=== PATIENT | female | born 1970 | race Caucasian/White ===

== ENCOUNTER 2023-04-08 12:21 | Day surgery (SDC) | payer BC, SELFPAY ==
--- NOTE | 2023-04-02 06:45 | EKG12_ITS ---
Test Reason : PREOP Blood Pressure : / mmHG Vent. Rate : 060 BPM Atrial Rate : 060 BPM P-R Int : 194 ms QRS Dur : 096 ms QT Int : 436 ms P-R-T Axes : 050 -10 030 degrees QTc Int : 436 ms Normal sinus rhythm Normal ECG Confirmed by KEN AGUILA, ALYCE ([id number]), newspaper managing editor EDISON IBARRA ([id number]) on 04/05/2023 2:14:56 PM Referred By: David Tyson Confirmed By:ALYCE ROGERS MD
[2023-04-02 07:53] LABS: Hematocrit 36.2 % (37-47); Hemoglobin 11.7 g/dL (12.0-15.0); Mean Corp Hgb Conc 32.3 g/dL (32-36); Mean Corpuscular Hgb 29.3 pg (27.0-32.0); Mean Corpuscular Volume 90.5 fL (81-99); Mean Platelet Vol. 10.4 fl (6.2-12.0); Platelet Count 274 K/mm3 (150-450); RBC Distribution Width CV 11.9 % (11.6-14.6); RBC Distribution Width SD 39.5 fl (35.1-43.9); White Blood Count 7.4 K/mm3 (4.4-11.0)
[2023-04-02 08:23] LABS: Anion Gap 1 (5-15); BUN 14 mg/dL (7-18); BUN/Creat Ratio 20.6 RATIO (10-20); Calcium,Total 9.2 mg/dL (8.5-10.1); Chloride 110 mmol/L (98-107); Creatinine, Serum 0.68 mg/dL (0.55-1.02); EST Glomerular Filtration Rate 97 mL/min (>60); Est Glom Filt Rate - Afr Amer 117 mL/min (>60); Glucose 101 mg/dL (74-106); Potassium 4.3 mmol/L (3.5-5.1); Sodium Level 142 mmol/L (136-145)
--- NOTE | 2023-04-06 17:10 | PCM.HP.STD ---
[facility] - General General Date of Admission: 04/08/23 Date of Service: 04/08/23 Chief Complaint: Chronic venous sufficiency, varicose veins with inflammation, leg pain?right lower extremity HPI Narrative JOSE LUIS HERRERA, is a 52 F who presents with a longstanding history of chronic venous disease in her lower extremities. She has recently presented with pain, aching, and discomfort in her right lower extremity. This has been occurring for many years. She denies swelling. She also denies a history of thrombophlebitis. She has a history of endovenous laser ablation of the left great saphenous vein and the left small saphenous vein which was performed in September 2017. A venous duplex examination has been performed, which has revealed incompetence involving the right great saphenous vein, the right small saphenous vein, and the right anterior accessory saphenous vein. The implications of this diagnosis have been discussed with the patient in detail. The options of management have been thoroughly explained. Conservative treatment measures have been implemented, which have included leg elevation, avoidance of idle standing and sitting, graduated compression stockings, weight control measures, active lifestyle, [id number]-rwl-[id number] analgesics, etc. Despite these measures, the patient has remained symptomatic, with symptoms which have adversely affected daily activities, quality of life, and job functions. [facility] Medical History (Updated 04/06/23 @ 17:[address] David Tyson MD) Anemia Chronic venous insufficiency of lower extremity Leg cramps Low iron Non-smoker Pain in right leg PONV (postoperative nausea and vomiting) Varicose veins with inflammation Wears glasses Home Medications NK 04/01/23 [History Last Taken Unknown] Allergy/AdvReac Type Severity Reaction Status Date / Time No Known Allergies Allergy Verified 04/01/23 09:21 other (The patient's father is 78 years of age with a history of hypertension. The patient's mother is 73 years of age with a history of hypertension and kidney disease.) Surgical History History of carpal tunnel release of both wrists (~2016) History of dilation and curettage History of endometrial ablation (~2007) History of excision of pilonidal cyst History of hysterectomy (~2022) Social History Smoking Status: Never smoker Physical Exam Const alert, oriented x3, no apparent distress and well nourished Constitutional Narrative: The patient is obese. She weighs 187 pounds. She stands 5 feet 7 inches tall. General Appearance: cooperative and well developed HEENT normocephalic and head/scalp atraumatic Eyes PERRL and EOMs intact bilaterally Neck General: trachea midline Resp normal respiratory effort and normal air movement Cardio regular rhythm and no murmurs GI soft to palpation and non-tender Extremity normal capillary refill, no clubbing, cyanosis or edema and no calf tenderness Extremity Narrative: Lower extremities are warm and well-perfused. Pedal pulses are bilaterally palpable. Full range of motion is noted. Scattered small varicosities are noted in the patient's lower extremities bilaterally. General Extremity: no tenderness to palpation of joints or extremities Skin General Skin Exam: no breakdown and turgor normal Rashes: no rashes Neuro CN's II-XII intact bilaterally, no focal motor deficits and no sensory deficits noted Psych thought process normal Appearance: appropriate Results Lab / Micro Data 04/02/23 06:55 04/02/23 06:55 Assessment & Plan Assessment/Plan (1) Chronic venous insufficiency of lower extremity: (2) Varicose veins with inflammation: (3) Pain in right leg: PLAN: Plan This is a 52-year-old female with a longstanding history of chronic venous insufficiency, varicose veins with inflammation, and leg pain in her right lower extremity. A venous duplex examination has revealed valvular incompetence involving the right great saphenous vein, the right small saphenous vein, and the right anterior accessory saphenous vein. The implications of this diagnosis have been discussed with the patient in detail. The options of management have been thoroughly explained. Despite conservative treatment measures, the patient remains symptomatic, with symptoms which adversely affect daily activities, quality of life, and job functions. Medications and risks of endovenous laser ablation of the right great saphenous vein, the right small saphenous vein, and the accessory saphenous vein have been discussed with patient in detail. Plan: The patient is to be admitted for the purpose of elective endovenous laser ablation of the right great saphenous vein, the right small saphenous vein, and the right anterior accessory saphenous vein. The indications and risks of the procedure have been discussed with the patient in detail. Expectations have been explained. Patient's questions have been answered. The patient has indicated her desire to proceed. The appropriate preprocedure consent process has been undertaken.
[2023-04-08] MEDS: Lactated Ringers 1,000 ML 15 ML IV (12:55)
[2023-04-08] MEDS: Enoxaparin 30 MG/0.3 ML Syringe SC (12:55)
[2023-04-08 12:57] VITALS: BP 124/83; PULSE 80; RESP 18; TEMP 36.8; O2SAT 98; BMI 30.2
[2023-04-08] MEDS: Cefazolin 2 GM in 0.9% Normal Saline (100mL Bag) 100 ML IV (14:09)
[2023-04-08] MEDS: [UNRECOGNIZED DRUG - OTHER] OPERA.SITE (14:35)
[2023-04-08] MEDS: Lactated Ringers 1,000 ML 65 ML IV (15:35)
--- NOTE | 2023-04-08 15:49 | DCINST_ITS ---
Discharge Instructions Diet Discharge Diet: No restrictions Activity Discharge Activity: May Not Drive (May not drive for 48 hours) May shower in (days): 2 Lifting Restrictions: Avoid lifting more than 10 pounds for 10 days Additional Activity Instructions:: Elevate legs at heart level or higher as much s possible. Dressing / Incision Suture Line Care: Avoid Pulling/Pushing Change Dressing in: 2 days Remove Dressing in: 2 days (May shower in 48 hours, then rewrap with Ubaldo from base of toes to groin daily.) Cleanse incision/area with: Keep Dressing Clean & Dry Follow Up Care Please Follow Up With: David Tyson MD When: 10-14 days Test Results: Test results from this visit will be discussed in further detail at your follow- up appointment, if applicable. Discharge Plan Admission Attending Provider: David Tyson Primary Care Provider: Fredis Ricardo Discharge Orders/Prescriptions Prescriptions: No Action NK Referrals / Follow Up: Fredis Ricardo DO [Primary Care Provider] - Disposition Disposition (needs filled in before D/C Order can be placed): Home, Self Care
[2023-04-08 15:52] VITALS: BP 124/83; BP 132/72; PULSE 102; RESP 18; TEMP 36.5; O2SAT 98
[2023-04-08 16:00] VITALS: BP 124/83; BP 152/73; PULSE 99; RESP 16; O2SAT 99
[2023-04-08 16:09] VITALS: BP 124/83; BP 136/75; PULSE 91; RESP 16; O2SAT 98
[2023-04-08 16:15] VITALS: BP 124/83; BP 140/80; PULSE 86; RESP 16; TEMP 36.6; O2SAT 100
[2023-04-08 16:35] VITALS: BP 124/83
--- NOTE | 2023-04-08 18:27 | OP.PCM_ITS ---
Problems Associated Problem List Diagnoses (1) Chronic venous insufficiency of lower extremity: (2) Varicose veins with inflammation: (3) Pain in right leg: Report of Operation Date of Procedure: 04/08/23 Pre-Operative Diagnosis: Chronic venous insufficiency, varicose veins with inflammation, leg pain?right lower extremity Post-Operative Diagnosis: Chronic venous insufficiency, varicose veins with inflammation, leg pain?right lower extremity Surgery/Procedure Performed:: 1. Endovenous laser ablation of the right great saphenous vein 2. Endovenous laser ablation of the right small saphenous vein 3. Endovenous laser ablation of the right anterior accessory saphenous vein Description of Surgical Findings:: As per pre-operative diagnosis Surgeon: David Tyson Type of Anesthesia: General and Tumescent Anesthesiologist: Kole French Specimen's removed: None Estimated Blood Loss (mL): Minimal Description of Procedure: This is a 52-year-old female with a longstanding history of chronic venous insufficiency, varicose veins with inflammation, and leg pain involving her right lower extremity. A preoperative venous duplex examination revealed segmental valvular incompetence involving the right great saphenous vein, right small saphenous vein, and the right anterior accessory saphenous vein. The implications of this diagnosis were discussed with the patient in detail. The options of management were fully explained. Conservative treatment measures were implemented, which included leg elevation, avoidance of idle standing and sitting, graduated compression stockings, weight control measures, active l ifestyle, [id number] analgesics, etc. Despite these measures, the patient remained symptomatic, with symptoms which adversely affected daily activities, quality of life, and job functions. The indications and risks of endovenous laser ablation of the right great saphenous vein, right small saphenous vein, and right anterior accessory saphenous vein were discussed with the patient in detail. The appropriate preprocedure consent process was undertaken. The patient underwent ultrasound marking of the right great saphenous vein, right small saphenous vein, and right anterior accessory saphenous vein preoperatively. She was brought to the operating room suite, placed supine upon the operating room table, where general anesthesia was administered by the anesthesia staff. The patient's right lower extremity and right groin were prepped and draped in the appropriate sterile manner. The patient was placed in reverse Trendelenburg position. Ultrasonography was used to image the right great saphenous vein in the distal calf. The micropuncture technique was used to access the right great saphenous vein percutaneously in the distal calf. In this manner, a 0.018 inch guidewire was advanced intraluminally into the right great saphenous vein, and was visualized by ultrasonography. A micropuncture sheath was advanced over the guidewire. The 0.018 inch guidewire was exchanged for a 0.035 inch guidewire, which was then advanced intraluminally to a level just distal to the right sapheno?femoral junction, as confirmed by ultrasound imaging. A long 4 [place] sheath was then advanced over the guidewire, and its tip was positioned approximately 2-1/2 cm distal to the right sapheno-femoral junction. Attention was then directed to the incompetent right small saphenous vein. To enhance exposure, the right lower extremity was placed in an externally rotated position with the right knee flexed. Using ultrasound imaging and the micropuncture technique, a micropuncture sheath was introduced intraluminally into the right small saphenous vein near the inferior border of the right gastrocnemius muscle, and was left in place, capped, for subsequent access purposes. Attention was then directed to the incompetent right anterior accessory saphenous vein. Using ultrasound imaging and the micropuncture technique, a micropuncture sheath was introduced intraluminally in the mid thigh left in place, capped, for subsequent access purposes. Attention was then redirected to the long 4 [place] sheath which had been previously placed intraluminally within the right great saphenous vein. Perivenous tumescent anesthesia was injected from the 4 [place] sheath exit site up to the tip of the sheath near the right sapheno-femoral junction. This was performed segmentally using ultrasound imaging. The AngioD[employer] laser fiber was then introduced into the 4 [place] sheath and coupled appropriately. Ultrasonography was used to confirm that the tip of the laser fiber was positio yeimi within the right great saphenous vein approximately 2-1/2 centimeters distal to the right sapheno-femoral junction. The patient was placed in Trendelenburg position and the laser fiber was activa myrna. The AngioDynamics laser was slowly withdrawn at a constant rate throughout the length of the right great saphenous vein thereby ablating the right great saphenous vein segmentally. The energy applied was approximately 60 to 80 J/cm. Following the laser ablation, the laser fiber and sheath were removed, and manual pressure was briefly applied to the percutaneous access site to achieve hemostasis. Attention was then directed to the micropuncture sheath which had been previously placed intraluminally within the right small saphenous vein. A 0.035 inch guidewire was introduced intraluminally and its tip was positioned within the proximal portion of the right small saphenous vein. The long 4 [place] sheath was then advanced over the guidewire and into position intraluminally within the right small saphenous vein. Perivenous tumescent and was then injected from the 4 [place] sheath exit site up to the tip of the sheath. This was performed segmentally using ultrasound imaging. The AngioDynamics laser fiber was then introduced into the 4 [place] sheath and coupled appropriately. Ultrasonography was used to confirm that the tip of the laser fiber was positioned within the proximal portion of the right small saphenous vein, several centimeters distal to its junction with the deep venous system, and remaining within the superficial portion of the right small saphenous vein. The patient was placed in Trendelenburg position and the laser fiber was activated. The AngioDynamics laser was slowly withdrawn at a constant rate throughout the length of the right small saphenous vein, thereby ablating the right small saphenous vein segmentally. The energy applied was approximately 60 to 80 J/cm. Following the laser ablation, the laser fiber and sheath were removed, and manual pressure was briefly applied to the percutaneous access site to achieve hemostasis. Attention was then directed to the micropuncture sheath placed intraluminally within the right anterior accessory saphenous vein. A 0.035 inch guidewire was then intraluminally was positioned within the proximal portion of the right anterior accessory vein. The long 4 [place] sheath was then advanced over the g uidewire and into position intraluminally within the right anterior accessory saphenous vein. Perivenous tumescent anesthesia was injected from the 4 [place] sheath exit site up to the tip of the sheath. This was performed segmentally using ultrasound imaging. The AngioDynamics laser fiber was then introduced into the 4 [place] sheath and coupled appropriately. Ultrasonography was used to confirm that the tip of the laser fiber was positioned within the proximal portion of the right anterior accessory saphenous vein, several centimeters distal to its junction with the deep venous system. The patient was placed in Trendelenburg position and the laser fiber was activated. The AngioDynamics laser was slowly withdrawn at a constant rate throughout the length of the right anterior accessory saphenous vein, thereby ablating the vein segmentally. The energy applied was approximately 60 to 80 J/cm. Following the laser ablation, the laser fiber and sheath were removed, and manual pressure was briefly applied to the percutaneous access site to achieve hemostasis. After his factor hemato this, the access sites were approximated using Cavilon and skin wraps. Dry sterile gauze dressings were applied over each access site and the leg was wrapped from the base of the toes to the upper thigh with Kerlix, followed by Ubaldo wrap. The blood loss for the procedure was minimal. The sponge, needle, and instrument counts at the end of the procedure were correct. The patient tolerated the procedure well, and was transported from the operating room to the post-anesthesia care unit in stable condition. The amount of tumescent anesthesia utilized, number of joules applied, and treatment times were recorded separately. Grafts/Implants Used: None Complications None Admit VTE Documentation VTE Present on Admission: No VTE Mechan Device Prophylaxis: SCD's (Left leg) VTE Pharm Prophylaxis ordered?: Yes
== END 2023-04-08 16:38 | disposition home or self-care (01) ==
LOC: SDC 12:22 → AC 12:24
PROVIDERS: PCP Student in an Organized Health Care Education/Training Program; Referring Provider Surgery; Visit Provider Surgery
PROC: (CPT 36478; principal; 2023-04-08 13:45)
DX: I83.11 Varicose veins of right lower extremity with inflammation (principal); E66.9 Obesity, unspecified; Z68.30 Body mass index [BMI] 30.0-30.9, adult
CPT/HCPCS: 36478; 36479; 01520; 36415; 80048; 85027; 93005; 93971; J7040; J7120; J2405